=== PATIENT | female | born 1990 | race American Indian/Alaskan Native ===

== ENCOUNTER 2017-03-25 20:40 | Outpatient (CLI) | payer MEDICAID ==
[2017-03-25] MEDS ORDERED: LACTATED RINGERS 500 ML IV ONE (20:45)
[2017-03-25 20:59] VITALS: BP 118/68
[2017-03-25] MEDS ORDERED: LACTATED RINGERS 1,000 ML IV ONE (21:31)
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
== END 2017-03-25 23:15 | disposition home or self-care (01) ==
LOC: TRG 20:40
PROVIDERS: ATTEND Obstetrics & Gynecology
DX: O26.893 Other specified pregnancy related conditions, third trimester (principal); S39.91XA Unspecified injury of abdomen, initial encounter; Z3A.30 30 weeks gestation of pregnancy; X58.XXXA Exposure to other specified factors, initial encounter; Y93.89 Activity, other specified; Y92.89 Other specified places as the place of occurrence of the external cause; Y99.8 Other external cause status
CPT/HCPCS: 59025; 76819; 96360; J7120

== ENCOUNTER 2017-05-31 18:35 | Outpatient (CLI) | payer MEDICAID ==
[2017-05-31 18:53] VITALS: BP 126/70
== END 2017-05-31 19:40 | disposition home or self-care (01) ==
LOC: TRG 18:35
PROVIDERS: ATTEND Obstetrics & Gynecology
DX: O47.1 False labor at or after 37 completed weeks of gestation (principal); Z3A.39 39 weeks gestation of pregnancy
CPT/HCPCS: 59025

== ENCOUNTER 2017-06-09 05:15 | Inpatient (IN) | payer MEDICAID ==
[2017-06-09] MEDS ORDERED: LACTATED RINGERS 1,000 ML IV SCH ×3 (08:00→17:00)
[2017-06-09 09:09] LABS: Basophils % (Auto) 0.2 % (0.0-1.8); Eosinophils # (Auto) 0.1 K/mm3 (0.0-0.4); Eosinophils % (Auto) 0.8 % (0.0-4.3); Hemoglobin 12.2 gm/dl (10.1-14.3); Lymphocytes # (Auto) 1.4 K/mm3 (1.2-5.4); Lymphocytes % (Auto) 8.8 % (13.4-35.0); Mean Corpuscular HGB Conc 35 % (30-34); Mean Corpuscular Hemoglobin 31 pg (28-32); Mean Corpuscular Volume 88 fl (79-97); Monocytes # (Auto) 0.7 K/mm3 (0.0-0.8); Monocytes % (Auto) 4.5 % (0.0-7.3); Red Blood Count 3.97 M/mm3 (3.65-5.03); Red Cell Distribution Width 13.9 % (13.2-15.2)
[2017-06-09] MEDS ORDERED: XYLOCAINE 2% INFILTRATI ONE (09:11)
[2017-06-09] MEDS ORDERED: ePHEDrine SULFATE IV PRN (09:11)
[2017-06-09] MEDS ORDERED: BRETHINE SUB-Q PRN (09:11)
[2017-06-09] MEDS ORDERED: ZOFRAN IV PRN ×2 (09:11→17:40)
[2017-06-09] MEDS ORDERED: SUBLIMAZE IV PRN (09:11)
--- NOTE | 2017-06-09 09:21 | History and Physical Report ---
History of Present Illness Date of examination: 06/09/17 (pt admitted from Triage in early labor @ 41 weeks ) Date of admission: 06/09/17 05:16 History of present illness: EDC Confirmation: 06/02/2017 Gestational Age: 6 4/7 weeks Past History : 1 Term Births: 0 Premature Births: 0 Living Children: 0 Para: 0 Mult. Births: 0 Prev : 0 Prev. attempt? 0 Aborta: 0 Elect. Ab: 0 Spont. Ab: 0 Ectopics: 0 Past Medical History: Negative Past Medical History Past Surgical History: negative Past Medical History Anesthesia Complications: negative Anemia: negative Autoimmune Disorder: negative Bleeding Disorder: negative Blood Transfusions: negative Breast Disease: negative Diabetes: negative Heart Disease: negative Hypertension: negative Hepatitis/Liver Disease: negative Kidney Disease/UTI: negative Neurologic/Epilepsy/Migraines: negative Phlebitis/Varicosities: negative Psychiatric: negative Pulmonary Disease/Asthma: negative Thyroid Disease: negative Hospitalizations: negative Surgery (Non-machine set up): negative Abnormal PAP: positive, Ascus + HPV 2009 S[facility] Exposure: negative Infertility: negative Uterine Anomaly: negative Uterine Surgery (not C/S): negative Other Gynecologic Problems: negative Family Hx: adopted - no known FH 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 of genital herpes: no Partner hx. of genital herpes: no Rash, Viral, or Febrile illness since last LMP? no Varicella/Chicken Pox Status: Immunized TB Risk: no Genetic History Congenital Heart Defect: Dad: no Dax Disease: Dad: no Thalassemia Dad: no Neural Tube Defect Dad: no Down's Syndrome Dad: no Natalio-Sachs Dad: no Sickle Cell Disease/Trait Dad: no Hemophilia Dad: no Muscular Dystrophy Dad: no Cystic Fibrosis Dad: no [place] Chorea Dad: no Mental Retardation Dad: no Fragile X Dad: no Other Genetic/Chromosomal Disorder Dad: no Child w/other defect Dad: no Enviromental Exposures Xray Exposure: yes Medication, drug, or alcohol use since LMP: no Chemical/Other Exposure: no Exposure to Cat Liter: no Hx of Parvovirus (Fifth Disease): no Occupational Exposure to Children: none Current Allergies (reviewed today): No known allergies Laboratory Results Routine Urinalysis Leukocytes: negative Nitrite: negative Urobilinogen: negative Protein: negative Blood: negative Ketone: negative Bilirubin: negative Glucose: negative Urine HCG: positive Review of Systems General Denies fever, chills, sweats, anorexia, fatigue, weakness, malaise, weight loss and sleep disorder. Complains of nausea. Denies vomiting, headache, swelling of legs, abdominal pain, vaginal discharge, vaginal bleeding and contractions. Denies vaginal discharge, incontinence, dysuria, hematuria, urinary frequency, amenorrhea, menorrhagia, abnormal vaginal bleeding, pelvic pain, genital sores, decreased libido, painful periods, painful sex, urinary urgency, hot flashes, vaginal dryness, vaginal itching and vaginal odor. CV Denies chest pains, palpitations, syncope, dyspnea on exertion, orthopnea, PND and peripheral edema. Resp Denies cough, dyspnea at rest, excessive sputum, hemoptysis, wheezing and pleurisy. GI Denies nausea, vomiting, diarrhea, constipation, change in bowel habits, abdominal pain, melena, hematochezia, jaundice, gas/bloating, indigestion/ heartburn, dysphagia and odynophagia. Endo Denies cold intolerance, heat intolerance, polydipsia, polyphagia, polyuria and unusual weight change. Breast Denies left breast lump, right breast lump, nipple discharge, bloody discharge from nipple, breast pain, abnormal mammogram and breast enlargement. MS Denies back pain, joint pain, joint swelling, muscle cramps, muscle weakness, stiffness, arthritis, sciatica, restless legs, leg pain at night and leg pain with exertion. Derm Denies rash, itching, dryness and suspicious lesions. Neuro Denies paralysis, paresthesias, headache, seizures, tremors, vertigo, transient blindness, frequent falls, frequent headaches and difficulty walking. Psych Denies depression, anxiety, irritability and mood swings. Eyes Denies blurring, diplopia, irritation, discharge, vision loss, eye pain and photophobia. ENT Denies earache, ear discharge, tinnitus, decreased hearing, nasal congestion, nosebleeds, sore throat and hoarseness. Allergy Denies urticaria, allergic rash, hay fever and recurrent infections. Heme Denies abnormal bruising, bleeding and enlarged lymph nodes. 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: sono size: AGA FHT: 110 Past History - Obstetrical History Expected Date of Delivery: 06/02/17 Actual Gestation: 41 Week(s) 0 Day(s) : 1 Para: 0 Number of Living Children: 0 Medications and Allergies Allergies Allergy/AdvReac Type Severity Reaction Status Date / Time No Known Allergies Allergy Verified 03/25/17 20:45 Home Medications Medication Instructions Recorded Confirmed Last Taken Type Vit-Fe Fumar-FA [ 1 tab PO QDAY 05/31/17 05/31/17 05/31/17 History Vitamin] Active Meds: Active Medications Ephedrine Sulfate (Ephedrine Sulfate) 10 mg IV Q2M PRN PRN Reason: Hypotension Fentanyl (Sublimaze) 100 mcg IV Q2H PRN PRN Reason: Labor Pain Lactated Ringer's (Lactated Ringers) 1,000 mls @ 125 mls/hr IV DIRECT GAUTAM Lactated Ringer's (Lactated Ringers) 1,000 mls @ 125 mls/hr IV DIRECT GAUTAM Oxytocin/Sodium Chloride (Pitocin/Ns 20 Unit/1000ml Drip) 20 units in 1,000 mls @ 125 mls/hr IV DIRECT GAUTAM Oxytocin/Sodium Chloride (Pitocin/Ns 30 Unit/500ml) 30 units in 500 mls @ 4 mls /hr IV TITR GAUTAM PRN Reason: Protocol Lidocaine (Xylocaine 2%) 20 ml INFILTRATI ONCE ONE Stop: 06/09/17 09:12 Mineral Oil (Mineral Oil) 30 ml PO QHS PRN PRN Reason: Constipation Ondansetron HCl (Zofran) 4 mg IV Q8H PRN PRN Reason: Nausea And Vomiting Terbutaline Sulfate (Brethine) 0.25 mg SUB-Q ONCE PRN PRN Reason: Hyperstimulation/Hypertonicity - Vital Signs Vital signs: Vital Signs Temp Pulse Resp BP 97.8 F 80 20 127/79 06/09/17 05:33 06/09/17 05:33 06/09/17 05:33 06/09/17 05:33 Temp Pulse Resp BP Pulse Ox 97.8 F 89 20 131/60 06/09/17 05:33 06/09/17 09:10 06/09/17 05:33 06/09/17 09:10 - Physical Exam Breasts: Positive: normal Cardiovascular: Regular rate, Normal S1, Normal S2 Lungs: Positive: Clear to auscultation, Normal air movement Abdomen: Positive: normal appearance, soft, normal bowel sounds. Negative: distention, tenderness Genitourinary (Female): Positive: normal external genitalia, normal perenium Vulva: both: normal Vagina: Positive: normal moisture. Negative: discharge Cervix: Negative: lesion, discharge Uterus: Positive: normal size, normal contour Adnexa: both: normal Anus/Rectum: Positive: normal perianal skin, heme negative. Negative: rectal mass, hemorrhoids Extremities: Positive: normal Deep Tendon Reflex Grade: Normal +2 - Obstetrical FHR: category 1 Uterine Contraction Monitor Mode: External Cervical Dilatation: 4 (per galley boy) Cervical Effacement Percentage: 90 (BBOW) station: -2 Uterine Contraction Pattern: Regular Uterine Tone Measurement Phase: Resting Uterine Contraction Intensity: Moderate Results Result Diagrams: 06/09/17 08:45 Abnormal lab results 06/09/17 Range/Units 08:45 WBC 16.0 H (4.5-11.0) K/mm3 MCHC 35 H (30-34) % Lymph % (Auto) 8.8 L (13.4-35.0) % Seg Neutrophils % 85.7 H (40.0-70.0) % Seg Neutrophils # 13.7 H (1.8-7.7) K/mm3 All other labs normal. Strep Gp B MIGUEL A Negative HBsAg Screen Negative Negative *1 Rubella Antibodies, IgG 2.10 index Immune >0.99 *2 Non-immune <0.90 Equivocal 0.90 - 0.99 Immune >0.99 ABO Grouping A *3 Rh Factor Positive *4 Please note: Prior records for this patient's ABO / Rh type are not available for additional verification. Antibody Screen Negative Negative *5 RPR Non Reactive Non Reactive *6 WBC 6.3 x10E3/uL 3.4-10.8 *7 RBC 4.17 x10E6/uL 3.77-5.28 *8 Hemoglobin 12.4 g/dL 11.1-15.9 *9 Hematocrit 36.9 % 34.0-46.6 *10 MCV 89 fL 79-97 *11 MCH 29.7 pg 26.6-33.0 *12 MCHC 33.6 g/dL 31.5-35.7 *13 RDW 14.0 % 12.3-15.4 *14 Platelets 203 x10E3/uL 150-379 *15 Neutrophils 75 % *16 Lymphs 16 % *17 Monocytes 7 % *18 Eos 2 % *19 Basos 0 % *20 ! Immature Cells <No Reported Value> *21 Neutrophils (Absolute) 4.7 x10E3/uL 1.4-7.0 *22 Lymphs (Absolute) 1.0 x10E3/uL 0.7-3.1 *23 Monocytes(Absolute) 0.4 x10E3/uL 0.1-0.9 *24 Eos (Absolute) 0.1 x10E3/uL 0.0-0.4 *25 Baso (Absolute) 0.0 x10E3/uL 0.0-0.2 *26 ! Immature Granulocytes 0 % *27 ! Immature Grans (Abs) 0.0 x10E3/uL 0.0-0.1 *28 ! NRBC <No Reported Value> *29 Hematology Comments: <No Reported Value> *30 Tests: (3) HB Solu + Rflx Fra (143553) Hemoglobin (Hgb) Solubility Negative Negative *33 Tests: (4) Panel 409416 (360450) HIV Screen 4th Generation wRfx Non Reactive Non Reactive *34 Tests: (5) HCV Ab w/Rflx to Verification (955992) ! HCV Ab <0.1 s/co ratio 0.0-0.9 *35 Tests: (6) Comment: ([id number]) ! Comment: [facility] *36 Non reactive HCV antibody screen is consistent with no HCV infection, unless recent infection is suspected or other evidence exists to indicate HCV infection. Tests: (7) Urine Culture, Routine (559195) Urine Culture, Routine Final report *37 Tests: (8) Result (080283) ! Result 1 No growth *38 Assessment and Plan 27yo @ 41 weeks in early active labor GBS negative Orders in EMR. Pt desires minimal intervention. Desires to ambulate when possible
[2017-06-09 09:23] LABS: Platelet Count 207 K/mm3 (140-440)
[2017-06-09] MEDS ORDERED: PITOCin/NS 20 UNIT/1000ML DRIP 20 UNITS/1,000 ML BAG IV SCH ×3 (10:00→18:00)
[2017-06-09] MEDS ORDERED: PITOCin/NS 30 UNIT/500ML 30 UNITS/500 ML BAG IV SCH (10:00)
--- NOTE | 2017-06-09 10:19 | Event Note ---
Date: 06/09/17 (SROM meconium) Pt returned from ambulating. SROM meconium stained fluid NICU notified. SVE 5, 100,-1 Minimal variability Will bolus with some IVFs. May resume walking if reactive NST.
--- NOTE | 2017-06-09 14:47 | Progress Note ---
Assessment and Plan Pt OOB to chair Internal monitors recording well CTX Q 1-2 but mild intensity. SVE No chg. 6,100,-2. Vertex feels OA. Explained concerns of minimal chg since admission and that intervention needs to happen. Pt agrees to epidural and increasing pitocin. Also discussed that with this small amt of chg and that the meconium makes us more weary section is a possibility. also made aware of exam and is enroute. Will re-eval after epidural. - Patient Problems (1) Meconium in amniotic fluid Onset Date: ~06/09/17 Current Visit: Yes Status: Acute Subjective - Subjective Date of service: 06/09/17 (pt tolerating labor well;OOB to chair) Principal diagnosis: IUP @ 41 weeks; Meconium Interval history: EDC Confirmation: 06/02/2017 Gestational Age: 6 4/7 weeks Past History : 1 Term Births: 0 Premature Births: 0 Living Children: 0 Para: 0 Mult. Births: 0 Prev : 0 Prev. attempt? 0 Aborta: 0 Elect. Ab: 0 Spont. Ab: 0 Ectopics: 0 Past Medical History: Negative Past Medical History Past Surgical History: negative Past Medical History Anesthesia Complications: negative Anemia: negative Autoimmune Disorder: negative Bleeding Disorder: negative Blood Transfusions: negative Breast Disease: negative Diabetes: negative Heart Disease: negative Hypertension: negative Hepatitis/Liver Disease: negative Kidney Disease/UTI: negative Neurologic/Epilepsy/Migraines: negative Phlebitis/Varicosities: negative Psychiatric: negative Pulmonary Disease/Asthma: negative Thyroid Disease: negative Hospitalizations: negative Surgery (Non-contribution solicitor): negative Abnormal PAP: positive, Ascus + HPV 2009 [place] Exposure: negative Infertility: negative Uterine Anomaly: negative Uterine Surgery (not C/S): negative Other Gynecologic Problems: negative Family Hx: adopted - no known FH 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 of genital herpes: no Partner hx. of genital herpes: no Rash, Viral, or Febrile illness since last LMP? no Varicella/Chicken Pox Status: Immunized TB Risk: no Genetic History Congenital Heart Defect: Dad: no Dax Disease: Dad: no Thalassemia Dad: no Neural Tube Defect Dad: no Down's Syndrome Dad: no Natalio-Sachs Dad: no Sickle Cell Disease/Trait Dad: no Hemophilia Dad: no Muscular Dystrophy Dad: no Cystic Fibrosis Dad: no William Chorea Dad: no Mental Retardation Dad: no Fragile X Dad: no Other Genetic/Chromosomal Disorder Dad: no Child w/other defect Dad: no Enviromental Exposures Xray Exposure: yes Medication, drug, or alcohol use since LMP: no Chemical/Other Exposure: no Exposure to Cat Liter: no Hx of Parvovirus (Fifth Disease): no Occupational Exposure to Children: none Current Allergies (reviewed today): No known allergies Laboratory Results Routine Urinalysis Leukocytes: negative Nitrite: negative Urobilinogen: negative Protein: negative Blood: negative Ketone: negative Bilirubin: negative Glucose: negative Urine HCG: positive Review of Systems General Denies fever, chills, sweats, anorexia, fatigue, weakness, malaise, weight loss and sleep disorder. Complains of nausea. Denies vomiting, headache, swelling of legs, abdominal pain, vaginal discharge, vaginal bleeding and contractions. Denies vaginal discharge, incontinence, dysuria, hematuria, urinary frequency, amenorrhea, menorrhagia, abnormal vaginal bleeding, pelvic pain, genital sores, decreased libido, painful periods, painful sex, urinary urgency, hot flashes, vaginal dryness, vaginal itching and vaginal odor. CV Denies chest pains, palpitations, syncope, dyspnea on exertion, orthopnea, PND and peripheral edema. Resp Denies cough, dyspnea at rest, excessive sputum, hemoptysis, wheezing and pleurisy. GI Denies nausea, vomiting, diarrhea, constipation, change in bowel habits, abdominal pain, melena, hematochezia, jaundice, gas/bloating, indigestion/ heartburn, dysphagia and odynophagia. Endo Denies cold intolerance, heat intolerance, polydipsia, polyphagia, polyuria and unusual weight change. Breast Denies left breast lump, right breast lump, nipple discharge, bloody discharge from nipple, breast pain, abnormal mammogram and breast enlargement. MS Denies back pain, joint pain, joint swelling, muscle cramps, muscle weakness, stiffness, arthritis, sciatica, restless legs, leg pain at night and leg pain with exertion. Derm Denies rash, itching, dryness and suspicious lesions. Neuro Denies paralysis, paresthesias, headache, seizures, tremors, vertigo, transient blindness, frequent falls, frequent headaches and difficulty walking. Psych Denies depression, anxiety, irritability and mood swings. Eyes Denies blurring, diplopia, irritation, discharge, vision loss, eye pain and photophobia. ENT Denies earache, ear discharge, tinnitus, decreased hearing, nasal congestion, nosebleeds, sore throat and hoarseness. Allergy Denies urticaria, allergic rash, hay fever and recurrent infections. Heme Denies abnormal bruising, bleeding and enlarged lymph nodes. 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 Absent: distention, tenderness Uterus: Present: normal FHR: auscultation normal, category 1 Uterine Contraction Monitor Mode: Internal Cervical Dilatation: 6 Cervical Effacement Percentage: 100 station: -2 Uterine Contraction Pattern: Regular Uterine Tone Measurement Phase: Resting Uterine Contraction Intensity: Moderate Extremities: edema Deep Tendon Reflex Grade: Normal +2 - Labs Labs: Abnormal Labs 06/09/17 08:45 WBC 16.0 H MCHC 35 H Lymph % (Auto) 8.8 L Seg Neutrophils % 85.7 H Seg Neutrophils # 13.7 H Laboratory Results - last 24 hr 06/09/17 06/09/17 06/09/17 08:45 08:45 08:45 WBC 16.0 H RBC 3.97 Hgb 12.2 Hct 35.0 MCV 88 MCH 31 MCHC 35 H RDW 13.9 Plt Count 207 Lymph % (Auto) 8.8 L [place] % (Auto) 4.5 Eos % (Auto) 0.8 Baso % (Auto) 0.2 Lymph # 1.4 [place] # 0.7 Eos # 0.1 Baso # 0.0 Seg Neutrophils % 85.7 H Seg Neutrophils # 13.7 H RPR Nonreactive Blood Type A POSITIVE Antibody Screen Negative
--- NOTE | 2017-06-09 16:00 | Event Note ---
Date: 06/09/17 (epidural placed) Pt comfortable with epidural SVE no chg made aware.
[2017-06-09] MEDS ORDERED: NARCAN 2 MG/2 ML IV PRN (16:08)
--- NOTE | 2017-06-09 16:09 | Anesthesia Consultation ---
Anesthesia Consult and Med Hx Date of service: 06/09/17 - Airway Anesthetic Teeth Evaluation: Good ROM Head & Neck: Adequate Mental/Hyoid Distance: Adequate Intubation Access Assessment: Possibly Difficult - Pulmonary Exam CTA: Yes - Cardiac Exam Cardiac Exam: RRR - Pre-Operative Health Status ASA Pre-Surgery Classification: ASA3, Emergency Proposed Anesthetic Plan: Epidural, Spinal - Pulmonary Hx Asthma: No COPD: No Hx Pneumonia: No - Cardiovascular System Hx Hypertension: No - Central Nervous System Hx Seizures: No Hx Psychiatric Problems: No - Endocrine Hx Renal Disease: No Hx End Stage Renal Disease: No Hx Hypothyroidism: No Hx Hyperthyroidism: No - Hematic Hx Sickle Cell Disease: No - Other Systems Hx Alcohol Use: No Hx Obesity: Yes (morbid)
[2017-06-09] MEDS ORDERED: REGLAN IV ONE (16:10)
[2017-06-09] MEDS ORDERED: PEPCID IV ONE (16:10)
[2017-06-09] MEDS ORDERED: ANCEF/STERILE WATER 2 GM/20 ML 2 GM/20 ML SYRINGE IV ONE (16:15)
[2017-06-09] MEDS ORDERED: NACL 0.9% IR ONE (16:27)
[2017-06-09] MEDS ORDERED: WATER FOR IRRIG STERILE IR ONE (16:27)
[2017-06-09] MEDS ORDERED: ANCEF/STERILE WATER 2 GM/20 ML IV ONE (16:32)
[2017-06-09] MEDS ORDERED: XYLOCAINE MPF 2% ONE (16:43)
[2017-06-09] MEDS ORDERED: LACTATED RINGERS 1,000 ML ONE (16:54)
[2017-06-09] MEDS ORDERED: ZOFRAN ONE (16:54)
[2017-06-09] MEDS ORDERED: MORPHINE ONE (16:55)
[2017-06-09] MEDS ORDERED: NEO SYNEPHRINE/NS Syringe(OR USE) IV ONE (16:55)
[2017-06-09] MEDS ORDERED: SUBLIMAZE ONE (17:00)
[2017-06-09] MEDS ORDERED: ANCEF/STERILE WATER 2 GM/20 ML 2 GM/20 ML SYRINGE IV NR (17:00)
[2017-06-09] MEDS ORDERED: BICITRA PO SCH (17:00)
[2017-06-09] MEDS ORDERED: fentaNYL-BUPIV 2 MCG/ML-0.125% 200 MCG/100 ML BAG EPIDURAL SCH (17:00)
[2017-06-09] MEDS ORDERED: ePHEDrine SULFATE ONE (17:25)
[2017-06-09] MEDS ORDERED: BENADRYL IV PRN (17:40)
[2017-06-09] MEDS ORDERED: MORPHINE IV PRN (17:40)
--- NOTE | 2017-06-09 17:40 | Post Anesthesia Evaluation ---
- Post Anesthesia Evaluation Patient Participated: Yes Airway Patent: Yes Stable Respiratory Function: Yes Temp > 96.8F: Yes Pain Manageable: Yes Adequeate Hydration: Yes Anesthesia Complications: No Block Receding Appropriately: Yes
--- NOTE | 2017-06-09 17:51 | Operative Report ---
Operative Report Operative Report: Date of procedure: 06/09/2017 Pre-operative diagnosis: 41 weeks gestation Failure to progress Meconium stained fluid Category 2 tracing Post-operative diagnosis: Same Procedure name(s): Primary low transverse section via Pfannenstiel skin incision Surgeon: Dr. Ramirez Gas Combustion Engineer: ZAIN Anesthesia: NILO Story EBL: 600 mL Urine output: 100 mL of clear urine out at the procedure Fluids: 1500 mL Findings: Liveborn male infant with meconium-stained fluid noted weight 8 lbs. 1 oz. Apgars of 8 and 9 at one and 5 minutes Meconium stained fluid Grossly normal fallopian tubes and ovaries bilaterally Indications: Patient presented in active labor. Patient progressed approximately 6 cm 100% effaced and -1 to -2 station. Patient's cervical exam remained unchanged for approximately 7 hours. Patient during that timeframe was given an epidural as well as Pitocin in an effort to augment her labor. Patient's exam remained unchanged and patient was noted to have deep variable decelerations. Decision was made at this time to proceed with operative delivery via section as patient had a category 2 tracing and was remote from delivery. Procedure: Patient was taking to the operating room. Patient was then prepped and draped in sterile fashion after anesthesia was found to be adequate. A low transverse skin incision was made with the scalpel and carried down to the underlying layer of fascia with the Bovie. The fascia was then incised in the midline and this incision was extended bilaterally with the Bovie. The superior aspect of the fascia was grasped with Alice clamps tented upward and dissected off of the anterior rectus muscles with the scalpel. In similar fashion the inferior aspect of the fascia was grasped with Alice clamps tented upward and dissected off of the anterior rectus muscles. The rectus muscles were then bluntly divided in the midline. The peritoneum was identified and entered into sharply. The bladder blade was placed. The bladder flap was created using the Metzenbaum scissors. The bladder blade was replaced. A lower transverse uterine incision was made with the scalpel and extended bilaterally with the bandage scissors. Entry into the uterus yielded meconium- stained fluid .The infant's head was then delivered atraumatically. The anterior shoulder and rest of delivered without difficulty. Cord 1 was noted and easily reduced. The umbilical cord was clamped x2. The cord was cut. The infant was then placed in sterile bassinet. The cord blood was collected. The placenta was manually extracted in its entirety. The uterus was exteriorized and cleared of all clots and debris. The uterine incision was closed using 0 Vicryl in a running locking fashion. A second imbricating layer of the same suture was then created. The posterior cul-de-sac was copiously irrigated. The uterus was returned to the abdomen. The gutters were also irrigated. The anterior rectus muscles were reapproximated using 3-0 Vicryl. The anterior rectus fascia was reapproximated using 0 Vicryl in a running fashion. The subcuticular fat was reapproximated using 2-0 Vicryl in a running fashion. The skin was reapproximated with 4-0 Monocryl in a subcuticular stitch. The patient tolerated the procedure well. Sponge lap and needle counts were all correct x3. Patient was taken to the recovery room awake and in stable condition.
[2017-06-09] MEDS ORDERED: NARCAN 0.4 MG/1 ML IV PRN (17:54)
[2017-06-09] MEDS ORDERED: MOTRIN PO PRN (17:54)
[2017-06-09] MEDS ORDERED: TUCKS PAD TP PRN (17:54)
[2017-06-09] MEDS ORDERED: SODIUM CHLORIDE FLUSH SYRINGE 10 ML IV NR (18:00)
[2017-06-09] MEDS: D5LR 1,000 ML IV SCH (21:33)
[2017-06-09] MEDS ORDERED: MINERAL OIL PO PRN (22:00)
[2017-06-10] MEDS ORDERED: TORADOL IV SCH (03:00)
[2017-06-10] MEDS ORDERED: ANCEF/NS 1 GM/50 ML 1 GM/50 ML BAG IV SCH (04:00)
[2017-06-10] MEDS: D5LR 1,000 ML IV SCH (04:20)
--- NOTE | 2017-06-10 07:04 | Progress Note ---
Assessment and Plan - Patient Problems (1) delivery delivered Onset Date: ~06/09/17 Current Visit: Yes Status: Acute Plan to address problem: pt approx 12 hours s/p section VSS FF below umb Lochia small Dressing D &I H&H pending Stable s/p c/s P: continue pathway Advance diet and activity as tolerated. Regular diet ordered. Subjective - Subjective Date of service: 06/10/17 (pt in good spirits; no c/o voiced) Principal diagnosis: Day # 1 s/p section Interval history: EDC Confirmation: 06/02/2017 Gestational Age: 6 4/7 weeks Past History : 1 Term Births: 0 Premature Births: 0 Living Children: 0 Para: 0 Mult. Births: 0 Prev : 0 Prev. attempt? 0 Aborta: 0 Elect. Ab: 0 Spont. Ab: 0 Ectopics: 0 Past Medical History: Negative Past Medical History Past Surgical History: negative Past Medical History Anesthesia Complications: negative Anemia: negative Autoimmune Disorder: negative Bleeding Disorder: negative Blood Transfusions: negative Breast Disease: negative Diabetes: negative Heart Disease: negative Hypertension: negative Hepatitis/Liver Disease: negative Kidney Disease/UTI: negative Neurologic/Epilepsy/Migraines: negative Phlebitis/Varicosities: negative Psychiatric: negative Pulmonary Disease/Asthma: negative Thyroid Disease: negative Hospitalizations: negative Surgery (Non-nurse gynecology): negative Abnormal PAP: positive, Ascus + HPV 2009 SIMEON Exposure: negative Infertility: negative Uterine Anomaly: negative Uterine Surgery (not C/S): negative Other Gynecologic Problems: negative Family Hx: adopted - no known FH 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 of genital herpes: no Partner hx. of genital herpes: no Rash, Viral, or Febrile illness since last LMP? no Varicella/Chicken Pox Status: Immunized TB Risk: no Genetic History Congenital Heart Defect: Dad: no Dax Disease: Dad: no Thalassemia Dad: no Neural Tube Defect Dad: no Down's Syndrome Dad: no Natalio-Sachs Dad: no Sickle Cell Disease/Trait Dad: no Hemophilia Dad: no Muscular Dystrophy Dad: no Cystic Fibrosis Dad: no William Chorea Dad: no Mental Retardation Dad: no Fragile X Dad: no Other Genetic/Chromosomal Disorder Dad: no Child w/other defect Dad: no Enviromental Exposures Xray Exposure: yes Medication, drug, or alcohol use since LMP: no Chemical/Other Exposure: no Exposure to Cat Liter: no Hx of Parvovirus (Fifth Disease): no Occupational Exposure to Children: none Current Allergies (reviewed today): No known allergies Laboratory Results Routine Urinalysis Leukocytes: negative Nitrite: negative Urobilinogen: negative Protein: negative Blood: negative Ketone: negative Bilirubin: negative Glucose: negative Urine HCG: positive Review of Systems General Denies fever, chills, sweats, anorexia, fatigue, weakness, malaise, weight loss and sleep disorder. Complains of nausea. Denies vomiting, headache, swelling of legs, abdominal pain, vaginal discharge, vaginal bleeding and contractions. Denies vaginal discharge, incontinence, dysuria, hematuria, urinary frequency, amenorrhea, menorrhagia, abnormal vaginal bleeding, pelvic pain, genital sores, decreased libido, painful periods, painful sex, urinary urgency, hot flashes, vaginal dryness, vaginal itching and vaginal odor. CV Denies chest pains, palpitations, syncope, dyspnea on exertion, orthopnea, PND and peripheral edema. Resp Denies cough, dyspnea at rest, excessive sputum, hemoptysis, wheezing and pleurisy. GI Denies nausea, vomiting, diarrhea, constipation, change in bowel habits, abdominal pain, melena, hematochezia, jaundice, gas/bloating, indigestion/ heartburn, dysphagia and odynophagia. Endo Denies cold intolerance, heat intolerance, polydipsia, polyphagia, polyuria and unusual weight change. Breast Denies left breast lump, right breast lump, nipple discharge, bloody discharge from nipple, breast pain, abnormal mammogram and breast enlargement. MS Denies back pain, joint pain, joint swelling, muscle cramps, muscle weakness, stiffness, arthritis, sciatica, restless legs, leg pain at night and leg pain with exertion. Derm Denies rash, itching, dryness and suspicious lesions. Neuro Denies paralysis, paresthesias, headache, seizures, tremors, vertigo, transient blindness, frequent falls, frequent headaches and difficulty walking. Psych Denies depression, anxiety, irritability and mood swings. Eyes Denies blurring, diplopia, irritation, discharge, vision loss, eye pain and photophobia. ENT Denies earache, ear discharge, tinnitus, decreased hearing, nasal congestion, nosebleeds, sore throat and hoarseness. Allergy Denies urticaria, allergic rash, hay fever and recurrent infections. Heme Denies abnormal bruising, bleeding and enlarged lymph nodes. 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 Ht: sono size: AGA FHT: 110 Patient reports: voiding normally (good volume out color is rachana; pt encouraged to po hydrate), pain well controlled : doing well Objective - Vital Signs Latest vital signs: Vital Signs Temp Pulse Resp BP Pulse Ox 06/10/17 03:30 18 06/10/17 03:00 16 06/10/17 02:07 98.7 F 78 20 104/67 96 06/09/17 20:45 98.6 F 92 H 20 93/63 95 06/09/17 18:30 99.8 F H 82 22 121/56 99 06/09/17 18:25 78 18 128/61 99 06/09/17 18:20 77 18 129/63 98 06/09/17 18:15 76 19 119/54 100 06/09/17 18:10 78 19 127/60 100 06/09/17 18:05 78 26 H 129/61 100 06/09/17 18:00 75 18 127/63 99 06/09/17 17:55 75 20 124/65 100 06/09/17 17:51 74 20 126/63 100 06/09/17 17:49 77 20 124/63 100 06/09/17 17:43 76 18 94/75 100 06/09/17 17:41 84 14 94/75 100 06/09/17 17:37 95 H 18 98/37 99 06/09/17 17:32 81 13 98/37 100 06/09/17 17:29 98.0 F 86 18 95/60 100 06/09/17 16:18 82 123/64 06/09/17 16:15 87 100 06/09/17 16:13 106 H 137/83 06/09/17 16:10 93 H 138/58 100 06/09/17 16:05 116 H 99 06/09/17 16:01 99 H 99/52 06/09/17 16:00 97 H 100 06/09/17 15:59 97 H 126/60 06/09/17 15:58 91 H 127/66 06/09/17 15:57 38 L 83 L 06/09/17 15:55 98 H 133/63 99 06/09/17 15:52 87 06/09/17 15:50 101 H 100 06/09/17 15:45 105 H 100 06/09/17 15:40 96 H 100 06/09/17 15:35 93 H 100 06/09/17 15:34 91 H 131/67 06/09/17 15:04 86 126/70 06/09/17 14:45 78 121/58 06/09/17 14:04 86 117/58 06/09/17 13:34 88 114/58 06/09/17 13:03 92 H 124/73 06/09/17 09:10 89 131/60 Intake and Output 06/09/17 06/10/17 06/10/17 22:59 06:59 14:59 Intake Total 1874 847.917 Output Total 170 Balance 1704 847.917 Intake: IV 1754 847.917 D5lr 1,000 ml @ 125 mls/ 847.917 hr IV DIRECT GAUTAM Rx#: [id number] PITOCin/NS 30 UNIT/500ML 4 30 units In 500 ml @ 4 mls/hr IV TITR GAUTAM Rx#: [id number] Intake, Free Water 120 Output: Urine 170 Other: Estimated Blood Loss 600 - Exam Breasts: Present: normal Cardiovascular: Present: Regular rate Lungs: Present: Clear to auscultation, Normal air movement Abdomen: Present: normal appearance, soft, normal bowel sounds Uterus: Present: normal, fundal height below umbilicus Extremities: Present: edema Deep Tendon Reflex Grade: Normal +2 Incision: Present: normal, dry, intact, dressed (to be removed this PM) - Labs Labs: Abnormal lab results 06/09/17 Range/Units 08:45 WBC 16.0 H (4.5-11.0) K/mm3 MCHC 35 H (30-34) % Lymph % (Auto) 8.8 L (13.4-35.0) % Seg Neutrophils % 85.7 H (40.0-70.0) % Seg Neutrophils # 13.7 H (1.8-7.7) K/mm3
[2017-06-10 07:20] LABS: Hematocrit 28.5 % (30.3-42.9); Hemoglobin 9.7 gm/dl (10.1-14.3)
[2017-06-10] MEDS ORDERED: NORCO 5/325 PO PRN (07:32)
[2017-06-10] MEDS: LANSINOH TP PRN (11:15)
[2017-06-10] MEDS ORDERED: ceFAZolin 1 GM in NACL 0.9% 20 ML IV SCH (13:00)
--- NOTE | 2017-06-10 13:58 | Query- General ---
Janusz Cornelius James Date:____06/10/17 Agricultural Education Instructor/CDS:___Rohit Phone#:___[phone] Exercise your independent professional judgment when responding to this query. Questions asked do not imply a particular answer is desired or expected. We greatly appreciate your clarification on this issue. Clinical Documentation States: 27 year old female was admitted on 06/09/17 The Operative report (Dr. Ramirez) states " Pre-operative diagnosis: 41 weeks gestation Failure to progress Meconium stained fluid Category 2 tracing Post-operative diagnosis: Same Procedure name(s): Primary low transverse section via Pfannenstiel skin incision " Clinical Findings Show (include reference to source document): BMI: 45.7 Given the above clinical scenario can you please provide an appropriate diagnosis based on your knowledge of the patient: PHYSICIAN RESPONSE: [ ] Obesity [x ] Morbid obesity [ ] Other(Please specify) [ ] Clinically undeterminable Present on Admission: [ y] Yes (Y) [ ] Clinically undeterminable (W) [ ]No(N) Please also document response in your Progress Notes and/or Discharge Summary and indicate if the condition was present on admission. MTDD
[2017-06-10] MEDS: NORCO 5/325 PO PRN (20:13)
[2017-06-10] MEDS: MYLICON PO PRN (20:17)
[2017-06-11] MEDS: MYLICON PO PRN (01:35)
[2017-06-11] MEDS: NORCO 5/325 PO PRN ×2 (01:36→11:29)
--- NOTE | 2017-06-11 08:42 | Progress Note ---
Assessment and Plan patient doing well, desires d/c home. Radhasamantha annabel, VSSAF, H&H 9.7/28.5 ( asymptomatic, acute anemia d/t blood loss.) Plan for rountine f/u 1 week in office. - Patient Problems (1) delivery delivered Onset Date: ~06/09/17 Current Visit: Yes Status: Acute Subjective - Subjective Date of service: 06/11/17 Principal diagnosis: Day # 2 s/p section Patient reports: appetite normal, voiding normally, pain well controlled, flatus , ambulating normally, no dizzy ambulation, no nauseated [place]: doing well, nursing well Objective - Vital Signs Latest vital signs: Vital Signs Temp Pulse Resp BP BP Pulse Ox 06/11/17 02:36 16 06/11/17 01:36 18 06/11/17 00:34 98.8 F 79 18 100/61 06/10/17 21:13 16 06/10/17 20:13 16 06/10/17 16:02 98.6 F 80 20 105/58 98 06/10/17 12:51 98.2 F 84 20 115/67 98 Intake and Output 06/10/17 06/11/17 06/11/17 23:59 07:59 15:59 Intake Total 240 480 Output Total 700 Balance -460 480 Intake: Oral 240 Intake, Free Water 480 Output: Urine 700 Void 700 Other: Total, Intake Amount 240 Total, Output Amount 700 # Voids Void 1 - Exam Breasts: Present: normal, Cardiovascular: Present: Regular rate Lungs: Present: Clear to auscultation, Normal air movement Abdomen: Present: normal appearance, soft, normal bowel sounds Vulva: both: normal Uterus: Present: normal, firm, fundal height at umbilicus Extremities: Present: edema Deep Tendon Reflex Grade: Normal +2 Incision: Present: normal, dry, intact
--- NOTE | 2017-06-11 08:43 | Discharge Summary ---
Providers - Providers Date of Admission: 06/09/17 05:16 Date of discharge: 06/11/17 (desires d/c home) Attending physician: HIMANSHU CEDILLO Primary care physician: HIMANSHU CEDILLO Hospitalization Reason for admission: active labor Delivery: Procedure: primary low transverse Incision: normal, dry, intact Other procedures: none complications: none Discharge diagnosis: IUP at term delivered [place] baby: male Hospital course: uncomplicated c/s delivery and post op care Condition at discharge: Good Disposition: DC-01 TO HOME OR SELFCARE - Discharge Diagnoses (1) delivery delivered Status: Acute Plan - Discharge Medications Prescriptions: Ibuprofen 800 mg PO Q6HR #30 tablet Lidocain2.5%/Prilocai2.5% [Emla] 1 applic TP ONCE #1 tube oxyCODONE /ACETAMINOPHEN [Percocet 5/325] 1 tab PO Q4HR #30 tab - Provider Discharge Summary Activity: routine, no sex for 6 weeks, no heavy lifting 4 weeks, no strenuous exercise Diet: routine Instructions: routine Additional instructions: [] Smoking cessation referral if applicable(refer to patient education folder for contact #) [] Refer to [facility]'s [facility] Center Booklet Call your doctor immediately for: * Fever > 100.5 * Heavy vaginal bleeding ( >1 pad per hour) * Severe persistent headache * Shortness of breath * Reddened, hot, painful area to leg or breast * Drainage or odor from incision. * Keep incision clean and dry at all times and follow doctor's instructions regarding bathing/showering - Follow up plan Follow up: HIMANSHU CEDILLO MD [Primary Care Provider] - 7 Days (Congratulations!! Please call [phone] to schedule your postop appointment and your son's circumcision in 1 week. Bring EMLA cream to your son's visit and await further instructions. Call for any quesitons or concerns. )
[2017-06-11 08:50] VITALS: BP 91/45
[2017-06-11] MEDS ORDERED: BOOSTRIX IM ONE (11:40)
[2017-06-11] MEDS: LANSINOH TP PRN (12:53)
== END 2017-06-11 15:45 | disposition home or self-care (01) | DRG 765 ==
LOC: TRG 05:15 → LD 05:16 → TRG 05:20 → OB 19:54
PROVIDERS: ADMIT Obstetrics & Gynecology; ATTEND Obstetrics & Gynecology
PROC: 10D00Z1 Extraction of Products of Conception, Low, Open Approach (ICD-10-PCS; principal; 2017-06-09)
DX: O77.0 Labor and delivery complicated by meconium in amniotic fluid (principal); Z68.42 Body mass index [BMI] 45.0-49.9, adult; Z3A.41 41 weeks gestation of pregnancy; Z37.0 Single live birth; E66.01 Morbid (severe) obesity due to excess calories; O99.214 Obesity complicating childbirth; O90.81 Anemia of the puerperium; D64.9 Anemia, unspecified
CPT/HCPCS: 36415; 85014; 85018; 85025; 86592; 86850; 86900; 86901; 90471; 90715; 99211; A6250; G0463; J0690; J1885; J2270; J2370; J2405; J2590; J2765; J3010; J7120; J7121